=== PATIENT | male | born 1995 | race Caucasian/White ===

== ENCOUNTER 2022-04-08 21:00 | Emergency (ER) | payer MEDICAID ==
[~2022-04-08] VITALS: Ht 180.3 cm; Wt 91.0 kg
[2022-04-08 22:13] VITALS: BP 139/82
[2022-04-08] MEDS ORDERED: KETOROLAC 60MG/2ML VIAL IM STA (23:45)
[2022-04-08] MEDS ORDERED: AMOXICILLIN/POTASSIUM CLAVULANATE 875/125MG TAB PO ONE (23:45)
[2022-04-09] MEDS ORDERED: AMOX1TAB16 MT (00:45)
[2022-04-09] MEDS ORDERED: SULF1TAB48 MT (00:45)
[2022-04-09] MEDS ORDERED: IBUP-2029 MT (00:45)
[2022-04-09] MEDS ORDERED: CHLO473M2 MT (00:45)
[2022-04-09] MEDS ORDERED: AMOXICILLIN/POTASSIUM CLAVULANATE 875/125MG TAB PO NR (01:30)
[2022-04-09] MEDS ORDERED: KETOROLAC 60MG/2ML VIAL IM NR (01:30)
== END 2022-04-09 02:21 | disposition home or self-care (01) ==
LOC: ER 21:00
DX: K04.7 Periapical abscess without sinus (principal); L03.211 Cellulitis of face; Z79.899 Other long term (current) drug therapy
CPT/HCPCS: 99283; J1885; 99281

== ENCOUNTER 2022-05-07 11:30 | Emergency (ER) | payer MEDICAID ==
[~2022-05-07] VITALS: Ht 177.8 cm; Wt 93.0 kg
[~2022-05-07 11:30] MED LIST: AMOX1TAB16 MT; CHLO473M2 MT; IBUP-2029 MT; SULF1TAB48 MT
[2022-05-07 11:35] VITALS: BP 147/89
[2022-05-07] MEDS ORDERED: IBUP-2028 PO (14:31)
[2022-05-07] MEDS ORDERED: BENZ1LOZ73 MT (14:31)
[2022-05-07] MEDS ORDERED: FLUC200T51 PO (14:31)
== END 2022-05-07 14:59 | disposition home or self-care (01) ==
LOC: ER 11:30
DX: J02.9 Acute pharyngitis, unspecified (principal); B37.0 Candidal stomatitis
CPT/HCPCS: 87070; 87430; 99283

== ENCOUNTER 2022-06-03 15:13 | Emergency (ER) | payer MEDICAID ==
[~2022-06-03] VITALS: Ht 172.7 cm; Wt 78.0 kg
[~2022-06-03 15:13] MED LIST changes: +BENZ1LOZ73 MT; +FLUC200T51 PO; +IBUP-2028 PO
[2022-06-03 15:26] VITALS: BP 134/90
[2022-06-03] MEDS ORDERED: FAMOTIDINE 20MG TABLET PO ONE (21:15)
[2022-06-03] MEDS ORDERED: PREDNISONE 20MG TABLET PO ONE (21:15)
[2022-06-03] MEDS ORDERED: DIPH25CA83 MT (21:33)
[2022-06-03] MEDS ORDERED: P20 MT (21:33)
[2022-06-03] MEDS ORDERED: CHLO473M2 MT (21:33)
[2022-06-03] MEDS ORDERED: FAMO-135 PO (21:33)
== END 2022-06-03 22:18 | disposition home or self-care (01) ==
LOC: ER 15:13
DX: K14.0 Glossitis (principal); T36.0X5A Adverse effect of penicillins, initial encounter; Y92.018 Other place in single-family (private) house as the place of occurrence of the external cause
CPT/HCPCS: 99283; J7512